=== PATIENT | male | born 1980 | race American Indian/Alaskan Native ===

== ENCOUNTER 2021-03-19 22:44 | Emergency (ER) | payer SELFPAY ==
--- NOTE | 2021-03-19 23:50 | EDM.PDOC ---
ED HPI GENERAL MEDICAL PROBLEM - General Chief Complaint: Chest Pain Stated Complaint: CHEST PAIN,HIGH BP, SHAKEY Time Seen by Provider: 03/19/21 23:36 Source of Information: Reports: Patient, RN, RN Notes Reviewed History Limitations: Reports: No Limitations - History of Present Illness INITIAL COMMENTS - FREE TEXT/NARRATIVE: Ezequiel is a 41 y/o male who presents to the ED via personal vehicle with complaints of chest pain. The patient reports he first noted his pain at approximately 0300 this morning; it has maintained in severity throughout the day. The patient reports he has been drinking large quantities of alcohol over the past three days with his last drink occurring at 0200. He states he blacked out and when he woke up an hour later he felt extremely anxious with a fast heart rate. He has attempted to sleep throughout the day but has been unable to; he is concerned he took drugs when he was blacked-out. He attests to lightheadedness, diaphoresis, nausea, vomiting, and dyspepsia. He denies fever, shaking chills, abdominal pain, constipation, diarrhea, dysuria, or hematuria. The patient reports he has been out of his blood pressure and mental health medications since moving back here one month ago. He is currently homeless and living at a local hotel. - Related Data Allergies Allergy/AdvReac Type Severity Reaction Status Date / Time No Known Allergies Allergy Verified 03/19/21 23:22 Home Meds: Home Meds Bismuth Subsalicylate [Pepto-Bismol] 262 mg PO PRN 06/15/13 [History] Omeprazole [Prilosec] 40 mg PO DAILY #1 capsule. 06/15/13 [Rx] Past Medical History Cardiovascular History: Reports: Hypertension Gastrointestinal History: Reports: GERD Musculoskeletal History: Reports: Fracture Psychiatric History: Reports: Addiction, Anxiety, Depression - Past Surgical History GI Surgical History: Reports: Colonoscopy, EGD Social & Family History - Tobacco Use Tobacco Use Status *Q: Former Tobacco User Used Tobacco, but Quit: Yes Month/Year Tobacco Last Used: unk - Alcohol Use Date of Last Drink: 03/19/21 Time of Last Drink: 03:00 - Recreational Drug Use Recreational Drug Use: Yes Recreational Drug Type: Reports: Methamphetamine ED ROS GENERAL - Review of Systems Review Of Systems: Comprehensive ROS is negative, except as noted in HPI. ED EXAM, GENERAL - Physical Exam Exam: See Below Exam Limited By: No Limitations General Appearance: Alert, Anxious Eye Exam: Bilateral Eye: EOMI, Normal Inspection, PERRL (4mm) Ears: Normal External Exam, Hearing Grossly Normal Nose: Normal Inspection, Normal Mucosa, No Blood Throat/Mouth: Normal Inspection, Normal Oropharynx, Normal Voice, No Airway Compromise Head: Atraumatic, Normocephalic Neck: Normal Inspection, Supple, Non-Tender, Full Range of Motion Respiratory/Chest: No Respiratory Distress, Lungs Clear, Normal Breath Sounds, No Accessory Muscle Use. No: Chest Non-Tender Cardiovascular: Normal Peripheral Pulses, Regular Rate, Rhythm, No Edema, No Gallop, No JVD, No Murmur, No Rub, Tachycardia Peripheral Pulses: 2+: Radial (L), Radial (R) GI/Abdominal: Soft, Non-Tender, No Distention, No Abnormal Bruit, No Mass, Pelvis Stable, Abnormal Bowel Sounds (Hypoactive bowel sounds) (Male) Exam: Deferred Rectal (Males) Exam: Deferred Back Exam: Normal Inspection, Full Range of Motion Extremities: Normal Inspection, Normal Range of Motion, Non-Tender, No Pedal Edema, Normal Capillary Refill Neurological: Alert, Oriented, CN II-XII Intact, Normal Cognition, Normal Gait, No Motor/Sensory Deficits, Other (CIWA 12) Psychiatric: Anxious Skin Exam: Warm, Dry, Intact, Normal Color, No Rash. No: Cyanosis, Jaundice, Mottled, Pallor #1 Interpretation EKG Date: 03/20/21 Time: 23:02 Rhythm: Other (Sinus Tachycardia) Rate (Beats/Min): 133 Duncan: RAD-Right Duncan Deviation P-Wave: Present QRS: Normal ST-T: Normal QT: Normal MS/PQ Interval: 0.13 Comparison: NA - No Prior EKG EKG Interpretation Comments: ST; RAD; Q-wave in III; No evidence of acute myocardial ischemia Course - Vital Signs Last Recorded V/S: Last Vital Signs Temp 97.6 F 03/19/21 23:25 Pulse 133 H 03/19/21 23:25 Resp 28 H 03/19/21 23:25 BP 178/132 H 03/19/21 23:25 Pulse Ox 96 03/19/21 23:25 - Orders/Labs/Meds Labs: Laboratory Tests 09/03/19/21 03/19/21 Range/Units 23:25 23:25 23:25 WBC 14.6 H (5.0-10.0) 10^3/uL RBC 4.91 (4.6-6.2) 10^6/uL Hgb 15.4 (14.0-18.0) g/dL Hct 43.4 (40.0-54.0) % MCV 88.4 (80-100) fL MCH 31.4 (27.0-34.0) pg MCHC 35.5 H (33.0-35.0) g/dL Plt Count 232 (150-450) 10^3/uL Neut % (Auto) 86.1 H (42.2-75.2) % Lymph % (Auto) 8.3 L (20.5-50.1) % Rogers % (Auto) 5.1 (2-8) % Eos % (Auto) 0.1 L (1.0-3.0) % Baso % (Auto) 0.4 (0.0-1.0) % Sodium 131 L (136-145) mmol/L Potassium 3.3 L (3.5-5.1) mmol/L Chloride 96 L (98-107) mmol/L Carbon Dioxide 17 L (21-32) mmol/L Anion Gap 21.3 H (7-13) mEq/L BUN 18 (7-18) mg/dL Creatinine 1.23 (0.70-1.30) mg/dL Est Cr Clr Drug Dosing 77.44 mL/min Estimated GFR (MDRD) > 60 BUN/Creatinine Ratio 14.6 (No establ ref range) Glucose 128 H (70-99) mg/dL Calcium 7.8 L (8.5-10.1) mg/dL Magnesium 1.5 L (1.8-2.4) mg/dL Total Bilirubin 2.2 H (0.2-1.0) mg/dL Direct Bilirubin 0.7 H (0.0-0.2) mg/dL AST 163 H (15-37) U/L ALT 103 H (16-63) U/L Alkaline Phosphatase 201 H (46-116) U/L Troponin I High Sens 7 (<=76) pg/mL C-Reactive Protein < 0.2 (0.0-0.9) mg/dL B-Natriuretic Peptide 42 (0-100) pg/ml Total Protein 7.8 (6.4-8.2) g/dL Albumin 3.8 (3.4-5.0) g/dL Globulin 4.0 Albumin/Globulin Ratio 0.95 Urine Color (YELLOW) Urine Appearance (CLEAR) Urine pH (5.0-9.0) Ur Specific Hampton (1.005-1.030) Urine Protein (NEGATIVE) Urine Glucose (UA) (NEGATIVE) Urine Ketones (NEGATIVE) Urine Occult Blood (NEGATIVE) Urine Nitrite (NEGATIVE) Urine Bilirubin (NEGATIVE) Urine Urobilinogen (0.2-1.0) mg/dL Ur Leukocyte Esterase (NEGATIVE) Urine RBC (0-5) /HPF Urine WBC (0-5/HPF) /HPF Ur Epithelial Cells (NOT SEEN) /HPF Amorphous Sediment (NOT SEEN) /HPF Urine Bacteria (0-FEW/HPF) /HPF Urine Mucus (NOT SEEN) /LPF Urine Opiates Screen (NEGATIVE) Ur Oxycodone Screen (NEGATIVE) Urine Methadone Screen (NEGATIVE) Ur Barbiturates Screen (NEGATIVE) U Tricyclic Antidepress (NEGATIVE) Ur Phencyclidine Scrn (NEGATIVE) Ur Amphetamine Screen (NEGATIVE) U Methamphetamines Scrn (NEGATIVE) Urine MDMA Screen (NEGATIVE) U Benzodiazepines Scrn (NEGATIVE) Urine Cocaine Screen (NEGATIVE) U Marijuana (THC) Screen (NEGATIVE) Ethyl Alcohol < 3 (0) mg/dL 03/19/21 03/19/21 Range/Units 23:51 23:51 WBC (5.0-10.0) 10^3/uL RBC (4.6-6.2) 10^6/uL Hgb (14.0-18.0) g/dL Hct (40.0-54.0) % MCV (80-100) fL MCH (27.0-34.0) pg MCHC (33.0-35.0) g/dL Plt Count (150-450) 10^3/uL Neut % (Auto) (42.2-75.2) % Lymph % (Auto) (20.5-50.1) % Rogers % (Auto) (2-8) % Eos % (Auto) (1.0-3.0) % Baso % (Auto) (0.0-1.0) % Sodium (136-145) mmol/L Potassium (3.5-5.1) mmol/L Chloride (98-107) mmol/L Carbon Dioxide (21-32) mmol/L Anion Gap (7-13) mEq/L BUN (7-18) mg/dL Creatinine (0.70-1.30) mg/dL Est Cr Clr Drug Dosing mL/min Estimated GFR (MDRD) BUN/Creatinine Ratio (No establ ref range) Glucose (70-99) mg/dL Calcium (8.5-10.1) mg/dL Magnesium (1.8-2.4) mg/dL Total Bilirubin (0.2-1.0) mg/dL Direct Bilirubin (0.0-0.2) mg/dL AST (15-37) U/L ALT (16-63) U/L Alkaline Phosphatase (46-116) U/L Troponin I High Sens (<=76) pg/mL C-Reactive Protein (0.0-0.9) mg/dL B-Natriuretic Peptide (0-100) pg/ml Total Protein (6.4-8.2) g/dL Albumin (3.4-5.0) g/dL Globulin Albumin/Globulin Ratio Urine Color Dark yellow (YELLOW) Urine Appearance Slightly cloudy (CLEAR) Urine pH 6.0 (5.0-9.0) Ur Specific Hampton >= 1.030 (1.005-1.030) Urine Protein 100 H (NEGATIVE) Urine Glucose (UA) Negative (NEGATIVE) Urine Ketones 80 H (NEGATIVE) Urine Occult Blood Small H (NEGATIVE) Urine Nitrite Negative (NEGATIVE) Urine Bilirubin Small H (NEGATIVE) Urine Urobilinogen 0.2 (0.2-1.0) mg/dL Ur Leukocyte Esterase Negative (NEGATIVE) Urine RBC 5-10 H (0-5) /HPF Urine WBC 0-5 (0-5/HPF) /HPF Ur Epithelial Cells Rare (NOT SEEN) /HPF Amorphous Sediment Few (NOT SEEN) /HPF Urine Bacteria Occasional (0-FEW/HPF) /HPF Urine Mucus Many H (NOT SEEN) /LPF Urine Opiates Screen Negative (NEGATIVE) Ur Oxycodone Screen Negative (NEGATIVE) Urine Methadone Screen Negative (NEGATIVE) Ur Barbiturates Screen Negative (NEGATIVE) U Tricyclic Antidepress Negative (NEGATIVE) Ur Phencyclidine Scrn Negative (NEGATIVE) Ur Amphetamine Screen Positive H (NEGATIVE) U Methamphetamines Scrn Positive H (NEGATIVE) Urine MDMA Screen Positive H (NEGATIVE) U Benzodiazepines Scrn Positive H (NEGATIVE) Urine Cocaine Screen Negative (NEGATIVE) U Marijuana (THC) Screen Positive H (NEGATIVE) Ethyl Alcohol (0) mg/dL Meds: Medications Discontinued Medications Generic Name Dose Route Start Last Admin Trade Name Marin PRN Reason Stop Dose Admin Acetaminophen 1,000 mg 03/20/21 01:37 03/20/21 01:45 Acetaminophen 500 Mg Tab PO 03/20/21 01:38 1,000 mg ONETIME ONE Administration Al Hydroxide/Mg Hydroxide 30 ml 03/19/21 23:52 03/20/21 00:20 Gi Cocktail Oral Solution 30 Ml PO 03/19/21 23:53 30 ml ONETIME ONE Administration Multivitamins/Minerals 10 ml/ 1,011.2 mls @ 999 mls/hr 03/19/21 23:52 03/20/21 02:19 Thiamine HCl 100 mg/ Folic IV 03/20/21 00:52 999 mls/hr Acid 1 mg/ Lactated Ringer's .BOLUS ONE Infusion Magnesium Sulfate 2 gm/ Premix 50 mls @ 25 mls/hr 03/20/21 00:01 03/20/21 00 :20 IV 03/20/21 02:00 25 mls/hr ONETIME ONE Administration Lorazepam 1 mg 03/20/21 01:47 03/20/21 01:54 Lorazepam 1 Mg Tab PO 03/20/21 01:48 1 mg ONETIME ONE Administration - Re-Assessments/Exams Free Text/Narrative Re-Assessment/Exam: 03/19/21 Banana Bag initiated. Ativan 1mg IVP administered while labs pending. GI cocktail administered. Patient verbalized improvement to midsternal pain following medication administration. Lab values reviewed with patient, he states he was diagnosed with liver disease while he was living in [place]. Will replace magnesium. Patient instructed to follow up with PCP regarding today's visit. Red flag signs and symptoms which would warrant immediate reevaluation reviewed. Patient verbalized understanding and agreement with the plan of care. Departure - Departure Time of Disposition: 03:11 Disposition: Home, Self-Care 01 Condition: Fair Clinical Impression: Elevated liver enzymes, Methamphetamine abuse, Ecstasy abuse, Marijuana abuse, Hyponatremia, Hypokalemia Alcohol withdrawal Qualifiers: Complication of substance-induced condition: uncomplicated Qualified Code(s): F10.230 - Alcohol dependence with withdrawal, uncomplicated Reflux esophagitis Qualifiers: Esophagitis bleeding: without hemorrhage Qualified Code(s): K21.00 - Gastro- esophageal reflux disease with esophagitis, without bleeding Instructions: Alcohol Withdrawal Syndrome, Hyponatremia, Hypokalemia, Food Choices for Gastroesophageal Reflux Disease, Adult Referrals: PCP,None [Primary Care Provider] - Forms: ED Department Discharge Additional Instructions: 1.) Follow up with your primary care provider and mental health provider in 2-3 days regarding today's visit. You need to restart your home medications. 2.) Drink plenty of water to stay hydrated. 3.) Eat a bland diet, including toast, applesauce, crackers. Avoid spicy, greasy, high-fat foods. 4.) Do not drink alcohol. 5.) Do not take recreational drugs. Sepsis Event Note (ED) - Evaluation Sepsis Screening Result: No Definite Risk
[2021-03-19] MEDS ORDERED: MVI, Adult with Vitamin K 10 ML, Thiamine 100 MG, Folic Acid 1 MG in Lactated Ringers 1... IV ONE ×4 (23:52)
[2021-03-19] MEDS ORDERED: GI Cocktail Oral Solution 30 ML PO ONE (23:52)
[2021-03-19 23:55] LABS: ANION GAP 21.3 mEq/L (7-13); CHLORIDE,CL 96 mmol/L (98-107); SODIUM,NA 131 mmol/L (136-145)
[2021-03-20] MEDS ORDERED: Magnesium Sulfate/Water 2 GM in Premix Bag 1 BAG IV ONE (00:01)
[2021-03-20 00:17] LABS: AMPHETAMINES,URINE POSITIVE (NEGATIVE); BARBITURATES,URINE NEGATIVE (NEGATIVE); BENZODIAZEPINE,URINE POSITIVE (NEGATIVE); MDMA (ECSTASY), URINE POSITIVE (NEGATIVE); METHADONE,URINE NEGATIVE (NEGATIVE); METHAMPHETAMINES,URINE POSITIVE (NEGATIVE); OPIATES,URINE NEGATIVE (NEGATIVE); OXYCODONE,URINE NEGATIVE (NEGATIVE); PHENCYCLIDINE,URINE NEGATIVE (NEGATIVE); TCA,URINE NEGATIVE (NEGATIVE)
[2021-03-20] MEDS ORDERED: Acetaminophen 500 MG Tab PO ONE (01:37)
[2021-03-20] MEDS ORDERED: LORazepam 1 MG Tab PO ONE (01:47)
== END 2021-03-20 03:25 | disposition home or self-care (01) ==
LOC: DL.ED 22:44
DX: K21.00 Gastro-esophageal reflux disease with esophagitis, without bleeding (principal); F10.230 Alcohol dependence with withdrawal, uncomplicated; F12.10 Cannabis abuse, uncomplicated; F15.10 Other stimulant abuse, uncomplicated; R74.8 Abnormal levels of other serum enzymes; E87.1 Hypo-osmolality and hyponatremia; E87.6 Hypokalemia; I10 Essential (primary) hypertension; Y90.5 Blood alcohol level of 100-119 mg/100 ml; Z79.899 Other long term (current) drug therapy; Z87.891 Personal history of nicotine dependence
CPT/HCPCS: 36415; 80053; 80305; 80307; 81001; 82248; 83735; 83880; 84484; 85025; 86140; 93005; 96365; 96366; 96368; 99285; A9270; J3411; J3475; J7120; J3490

== ENCOUNTER 2022-06-03 13:49 | Emergency (ER) | payer OTHER ==
[2022-06-03] MEDS ORDERED: Amoxicillin/Clavulanate K 875-125 MG Tab PO ONE ×2 (13:50→16:02)
[2022-06-03] MEDS ORDERED: LORazepam 1 MG Tab PO ONE (13:50)
[2022-06-03] MEDS ORDERED: Sodium Chloride 0.9% 10 ML Syringe FLUSH PRN (13:55)
[2022-06-03] MEDS ORDERED: LORazepam 2 MG/ML SDV IVPUSH ONE ×2 (13:55→15:15)
[2022-06-03] MEDS ORDERED: MVI, Adult with Vitamin K 10 ML, Thiamine 100 MG, Folic Acid 1 MG in Lactated Ringers 1... IV ONE ×4 (13:55)
[2022-06-03] MEDS ORDERED: Ondansetron 4 MG/2 ML SDV IV ONE (13:55)
[2022-06-03 14:35] LABS: PTT,PARTIAL THROMBOPLSTIN TIME 25.4 SEC (22.0-34.0)
[2022-06-03 14:36] LABS: ANION GAP 17.5 mEq/L (7-13)
[2022-06-03] MEDS ORDERED: Sodium Chloride 0.9% 1,000 ML IV ONE (15:14)
[2022-06-03 15:31] LABS: AMPHETAMINES,URINE NEGATIVE (NEGATIVE); BARBITURATES,URINE NEGATIVE (NEGATIVE); BENZODIAZEPINE,URINE NEGATIVE (NEGATIVE); MDMA (ECSTASY), URINE NEGATIVE (NEGATIVE); METHADONE,URINE NEGATIVE (NEGATIVE); METHAMPHETAMINES,URINE POSITIVE (NEGATIVE); OPIATES,URINE NEGATIVE (NEGATIVE); OXYCODONE,URINE NEGATIVE (NEGATIVE); PHENCYCLIDINE,URINE NEGATIVE (NEGATIVE); TCA,URINE NEGATIVE (NEGATIVE)
[2022-06-03] MEDS ORDERED: Amoxicillin/Clavulanate K 875-125 MG Tab ONE (17:48)
[2022-06-03] MEDS ORDERED: LORazepam 1 MG Tab ONE (17:48)
== END 2022-06-03 17:59 | disposition home or self-care (01) ==
LOC: DL.ED 13:49
DX: F10.230 Alcohol dependence with withdrawal, uncomplicated (principal); F15.10 Other stimulant abuse, uncomplicated; I10 Essential (primary) hypertension; K21.9 Gastro-esophageal reflux disease without esophagitis; Z79.899 Other long term (current) drug therapy; Y90.0 Blood alcohol level of less than 20 mg/100 ml
CPT/HCPCS: 36415; 70450; 70486; 72125; 80053; 80143; 80179; 80305; 80307; 81001; 82150; 83690; 85025; 85610; 85730; 96365; 96375; 96376; 99285; A9270; J2060; J2405; J3411; J3490; J7030; J7120

== ENCOUNTER 2024-03-04 13:26 | Emergency (ER) | payer BC, OTHER ==
[2024-03-04] MEDS: Ibuprofen 400 MG Tab PO ONE (14:33)
== END 2024-03-04 15:22 | disposition home or self-care (01) ==
LOC: DL.ED 13:26
DX: R10.30 Lower abdominal pain, unspecified (principal); I10 Essential (primary) hypertension; K21.9 Gastro-esophageal reflux disease without esophagitis; F17.290 Nicotine dependence, other tobacco product, uncomplicated; Z79.899 Other long term (current) drug therapy
CPT/HCPCS: 99282; 99283; A9270-GY

== ENCOUNTER 2024-08-29 22:41 | Emergency (ER) | payer OTHER ==
[2024-08-29] MEDS: MVI, Adult with Vitamin K 10 ML, Folic Acid 1 MG, Thiamine 100 MG in Lactated Ringers 1... IV ONE (22:34)
[2024-08-29 22:42] LABS: BASOPHILS PERCENT AUTO 0.6 % (0.0-1.0); EOSINOPHILS PERCENT AUTO 0.3 % (1.0-3.0); HEMATOCRIT 51.5 % (40.0-54.0); LYMPHOCYTES PERCENT AUTO 34.6 % (20.5-50.1); MEAN CORPUSCULAR HEMOGLOBIN 28.8 pg (27.0-34.0); MEAN CORPUSCULAR VOLUME 82.4 fL (80-100); MONOCYTES PERCENT AUTO 6.9 % (2-8); NEUTROPHILS PERCENT AUTO 57.6 % (42.2-75.2); PLATELET COUNT,PLT 319 10^3/uL (150-450); RED BLOOD CELL COUNT 6.25 10^6/uL (4.6-6.2); WHITE BLOOD CELL COUNT,WBC 6.3 10^3/uL (5.0-10.0)
[2024-08-29 22:57] LABS: INR 1.1 (0.9-1.2); PROTHROMBIN TIME 11.4 SEC (9.0-12.0)
[2024-08-29 23:03] LABS: A/G RATIO 0.9; ALANINE AMINOTRANSFERASE,ALT 60 U/L (16-63); ALBUMIN 3.9 g/dL (3.4-5.0); ALKALINE PHOSPHATASE 158 U/L (46-116); ANION GAP 19.9 mEq/L (7-13); ASPARTATE AMNIOTRANSFERASE,AST 67 U/L (15-37); BILIRUBIN TOTAL 0.9 mg/dL (0.2-1.0); BLOOD UREA NITROGEN,BUN 22 mg/dL (7-18); BUN/CREATININE RATIO 14.7 (No establ ref range); CALCIUM 8.5 mg/dL (8.5-10.1); CARBON DIOXIDE,CO2 24 mmol/L (21-32); CHLORIDE,CL 105 mmol/L (98-107); GLUCOSE RANDOM 155 mg/dL (70-99); MAGNESIUM 1.9 mg/dL (1.8-2.4); POTASSIUM,K 3.9 mmol/L (3.5-5.1); PROTEIN TOTAL,TP 8.3 g/dL (6.4-8.2); SODIUM,NA 145 mmol/L (136-145)
[2024-08-29 23:05] LABS: ESTIMATED GFR 58 mL/min (>=60); ETHANOL BLOOD MEDICAL 307 mg/dL (0)
[2024-08-30] MEDS: Lactated Ringers 1,000 ML IV ONE (01:03)
== END 2024-08-30 05:57 | disposition home or self-care (01) ==
LOC: DL.ED 22:41
DX: F10.129 Alcohol abuse with intoxication, unspecified (principal); N17.9 Acute kidney failure, unspecified; E86.0 Dehydration; I10 Essential (primary) hypertension; K21.9 Gastro-esophageal reflux disease without esophagitis; Z79.899 Other long term (current) drug therapy; Y90.8 Blood alcohol level of 240 mg/100 ml or more
CPT/HCPCS: 36415; 70450; 80053; 80307; 83735; 85025; 85610; 96361; 96365; 99285; J3411; J7120; 99284; J3490

== ENCOUNTER 2024-08-31 11:19 | Emergency (ER) | payer OTHER ==
[2024-08-31 11:59] LABS: BASOPHILS PERCENT AUTO 0.5 % (0.0-1.0); EOSINOPHILS PERCENT AUTO 0.5 % (1.0-3.0); HEMATOCRIT 47.4 % (40.0-54.0); HEMOGLOBIN 16.4 g/dL (14.0-18.0); MEAN CORPUSCULAR HEMOGLOBIN 28.1 pg (27.0-34.0); MEAN CORPUSCULAR HGB CONC 34.6 g/dL (33.0-35.0); MEAN CORPUSCULAR VOLUME 81.3 fL (80-100); MONOCYTES PERCENT AUTO 8.1 % (2-8); NEUTROPHILS PERCENT AUTO 73.9 % (42.2-75.2); PLATELET COUNT,PLT 204 10^3/uL (150-450); RED BLOOD CELL COUNT 5.83 10^6/uL (4.6-6.2); WHITE BLOOD CELL COUNT,WBC 5.9 10^3/uL (5.0-10.0)
[2024-08-31] MEDS: PHENobarbitaL sodium 260 MG in Sodium Chloride 0.9% 100 ML IV ONE (12:04)
[2024-08-31] MEDS: MVI, Adult with Vitamin K 10 ML, Folic Acid 1 MG, Thiamine 100 MG in Lactated Ringers 1... IV ONE (12:23)
[2024-08-31 12:32] LABS: ALANINE AMINOTRANSFERASE,ALT 115 U/L (16-63); ALBUMIN 3.6 g/dL (3.4-5.0); ALKALINE PHOSPHATASE 169 U/L (46-116); ANION GAP 19.3 mEq/L (7-13); ASPARTATE AMNIOTRANSFERASE,AST 195 U/L (15-37); BILIRUBIN TOTAL 4.8 mg/dL (0.2-1.0); BLOOD UREA NITROGEN,BUN 14 mg/dL (7-18); BUN/CREATININE RATIO 10.4 (No establ ref range); CALCIUM 8.6 mg/dL (8.5-10.1); CARBON DIOXIDE,CO2 21 mmol/L (21-32); CHLORIDE,CL 98 mmol/L (98-107); CREATININE 1.34 mg/dL (0.70-1.30); EST CRCL DRUG DOSING (CG) 68.88 mL/min; GLUCOSE RANDOM 121 mg/dL (70-99); MAGNESIUM 1.4 mg/dL (1.8-2.4); POTASSIUM,K 3.3 mmol/L (3.5-5.1); PROTEIN TOTAL,TP 7.6 g/dL (6.4-8.2); SODIUM,NA 135 mmol/L (136-145)
[2024-08-31 12:34] LABS: ESTIMATED GFR 66 mL/min (>=60); ETHANOL BLOOD MEDICAL < 3 mg/dL (0)
[2024-08-31 12:51] LABS: AMPHETAMINES,URINE NEGATIVE (NEGATIVE); BARBITURATES,URINE POSITIVE (NEGATIVE); BENZODIAZEPINE,URINE POSITIVE (NEGATIVE); MDMA (ECSTASY), URINE NEGATIVE (NEGATIVE); METHADONE,URINE NEGATIVE (NEGATIVE); METHAMPHETAMINES,URINE NEGATIVE (NEGATIVE); OPIATES,URINE NEGATIVE (NEGATIVE); OXYCODONE,URINE NEGATIVE (NEGATIVE); PHENCYCLIDINE,URINE NEGATIVE (NEGATIVE); TCA,URINE NEGATIVE (NEGATIVE)
[2024-08-31 13:27] LABS: PROTHROMBIN TIME 10.4 SEC (9.0-12.0)
[2024-08-31 13:29] LABS: GAMMA GLUTAMYL TRANSFERASE,GGT 247 U/L (15-85)
[2024-08-31 13:31] LABS: ACETAMINOPHEN 0 ug/mL (10-30 (Therapeutic))
[2024-09-02 21:42] LABS: HAV AB IGM Negative (Negative); HBC IGM Negative (Negative); HEP B SURG AG Negative (Negative); HEP C AB BY CIA Negative (Negative); HEP C AB BY CIA INDEX 0.19 IV
== END 2024-08-31 16:28 ==
LOC: DL.ED 11:19
DX: F10.131 Alcohol abuse with withdrawal delirium (principal); I10 Essential (primary) hypertension; Z79.899 Other long term (current) drug therapy; Y90.9 Presence of alcohol in blood, level not specified
CPT/HCPCS: 36415; 76705; 80053; 80074; 80143; 80305; 80307; 82977; 83735; 85025; 85610; 96365; 96366; 96367; 99285; J2560; J3411; J7120; 99284; J3490